=== PATIENT | female | born 1970 | race Caucasian/White ===

== ENCOUNTER 2018-03-02 10:02 | Emergency (ER) | payer MEDICAID ==
[2018-03-02 10:16] VITALS: BP 116/73
[2018-03-02] MEDS ORDERED: LIDOCAINE TOPICAL 4% 50 ML BOTTLE MM STA (10:59)
--- NOTE | 2018-03-02 11:08 | ED Physician Documentation ---
History of Present Illness - Stated complaint Stated Complaint: LF EYE IRRATION - Chief complaint Chief Complaint: Heent - Additonal information Additional information: hx from pt stye upper left lid margin with pustule Review of Systems Constitutional: denies: Fever Eyes: reports: Irritation : denies: Now [facility] PAST MEDICAL HISTORY - Past Medical History Past Medical History: Yes GI: Hiatal hernia Psych: Anxiety, Panic attacks Musculoskeletal: Rheumatoid arthritis - Past Surgical History Past Surgical History: Yes /[employer]: Tubal ligation - Present Medications Home Medications: Ambulatory Orders Medication Instructions Recorded Confirmed Gabapentin 400 mg PO TID 02/06/13 02/07/13 Ibuprofen [Motrin] 800 mg PO Q8H PRN #30 tablet 02/06/13 02/07/13 Omeprazole [PriLOSEC] 20 mg PO DAILY 02/06/13 02/07/13 Albuterol [Ventolin Hfa] 2 puffs INH Q4H PRN #1 inhaler 02/07/13 guaiFENesin/CODEINE [Robitussin AC] 10 ml PO Q6H #120 ml 02/07/13 HYDROcod/ACETAM 5/325 [Vicodin 1 - 2 ea PO Q6H PRN #15 tablet 03/27/13 5/325] Erythromycin Base [Erythromycin] 1 applic OP Q4H #1 tub 03/02/18 - Allergies Allergies/Adverse Reactions: Allergies Allergy/AdvReac Type Severity Reaction Status Date / Time No Known Drug Allergies Allergy Verified 02/07/13 09:22 - Social History Does the pt smoke?: Yes Smoking Status: Current every day smoker Does the pt drink ETOH?: Yes Does the pt have substance abuse?: No - Immunizations Immunizations are current?: Yes - POLST Patient has POLST: No PD ED PE NORMAL - Vitals Vital signs reviewed: Yes - HEENT HEENT: Other (L upper lid swollen erytehmatous tender with pustule on lid margin, unable to fully every but no FB seen with gently pulling lid away for globe) Results - Vitals Vitals: Vital Signs - 24 hr 03/02/18 10:13 Temperature 36.6 C Heart Rate 59 L Respiratory 18 Rate Blood Pressure 116/73 O2 Saturation 100 Oxygen O2 Source Room air PD MEDICAL DECISION MAKING - ED course ED course: procedure - topical anesthesia 4% lido with good effect - small amt purulent dc obtained MSE preformed infection identified and addressed with drainage and antibiotic ointment no life limb vision threatening issue requiring admit surgery etc identified and feel pt stable and safe to dc home - Sepsis Event Vital Signs: Vital Signs - 24 hr 03/02/18 10:13 Temperature 36.6 C Heart Rate 59 L Respiratory 18 Rate Blood Pressure 116/73 O2 Saturation 100 Oxygen O2 Source Room air Departure - Departure Disposition: 01 Home, Self Care Clinical Impression: Sty Qualifiers: Laterality: left Eyelid: upper Qualified Code(s): H00.014 - Hordeolum externum left upper eyelid Condition: Good Instructions: ED Hordeolum Prescriptions: Erythromycin Base [Erythromycin] 1 applic OP Q4H #1 tub Comments: Continue to apply antibiotic ointment to the lid margins four times a day for a week Warm compresses several times a day to prevent crusting and encourage further drainage Return if worse
[2018-03-02] MEDS ORDERED: PROPARACAINE 0.5% OPHTH DROPS 15 ML LEFTEYE STA (11:34)
== END 2018-03-02 11:48 | disposition home or self-care (01) ==
LOC: ED 10:02
DX: H00.014 Hordeolum externum left upper eyelid (principal); F17.200 Nicotine dependence, unspecified, uncomplicated
CPT/HCPCS: 99283; J3490